=== PATIENT | male | born 1960 | race Caucasian/White ===

== ENCOUNTER 2016-06-07 05:28 | Emergency (ER) | payer BC, OTHER ==
[2016-06-07 05:42] VITALS: BMI 30.3
[2016-06-07] MEDS ORDERED: FAMOTIDINE 20 MG/50 ML IVPB 50 ML IVPB ONE ×2 (06:05→06:16)
[2016-06-07] MEDS ORDERED: PANTOPRAZOLE SODIUM 40 MG in SODIUM CHLORIDE 100 ML IVPB ONE (06:05)
[2016-06-07] MEDS ORDERED: SODIUM CHLORIDE 1,000 ML IV STA (06:05)
[2016-06-07] MEDS ORDERED: PANTOPRAZOLE SODIUM 40 MG VIAL ONE (06:16)
--- NOTE | 2016-06-07 06:25 | PDOC ---
[id number] 4d STOMACH PAIN Time Seen by Provider: 06/07/16 05:51 History Source: Patient Exam Limitations: No Limitations - History of Present Illness Travel History: No Initial Comments: 06/07/16 06:20 55yo Male patient presents to ED c/o abd pain and diarrhea that began Monday. Patient reports pain has been constant to the point he is very uncomfortable and has no appetite at this time. Patient denies fever, nausea, vomiting, constipation, rectal bleeding, dysuria, hematuria, rash, back pain, CP, diff breathing, trauma, injury or any other complaints at this time. Denies PmHx/Sx, medications use or allergies. Timing/Duration: reports: constant, getting worse Quality: reports: moderate Abdominal Pain Onset Location: reports: epigastric Pain Radiation: reports: no radiation Activities at Onset: reports: no specific activity Treatment Prior to Arrive: worse with: analgesics, antacids, cold pack, heat, laxative, enema, other Aggravating Factors: worse with: None, Defecation, Eating, Emotional upset, Exertion, [place], Movement, Voiding, Change in position Alleviating Factors: worse with: None, Belching, Shallow Breathing, Defecation, Eating, Holding Breath, Passing Gas, Change in Position, Rest, Voiding, Vomiting Past History - Travel Traveled outside of the country in the last 30 days: No Close contact w/someone who was outside of country & ill: No - Past Medical History Allergies/Adverse Reactions: Allergies Allergy/AdvReac Type Severity Reaction Status Date / Time No Known Allergies Allergy Verified 06/07/16 05:40 Home Medications: Ambulatory Orders NK [No Known Home Medication] 06/07/16 Anemia: No Asthma: No Cancer: No Cardiac Disorders: No CVA: No COPD: No CHF: No Dementia: No Diabetes: No GI Disorders: Yes (DIVERTICULOSIS; POLYP) Disorders: No HTN: No Hypercholesterolemia: No Liver Disease: No Seizures: No Thyroid Disease: No - Surgical History Abdominal Surgery: No Appendectomy: No Cardiac Surgery: No Cholecystectomy: No Lung Surgery: No Neurologic Surgery: No Orthopedic Surgery: No - Immunization History Td Vaccination: Yes TDAP Vaccination: Yes Immunization Up to Date: Yes - Psycho/Social/Smoking Cessation Hx Anxiety: No Suicidal Ideation: No Smoking Status: No Smoking History: Never smoked Years of Tobacco Use: 0 Have you smoked in the past 12 months: No Number of Cigarettes Smoked Daily: 0 Cigars Per Day: 0 Information on smoking cessation initiated: No Hx Alcohol Use: No Drug/Substance Use Hx: No Substance Use Type: None Hx Substance Use Treatment: No Abd/GI Specific PMHX - Complaint Specific PMHX Colitis: No Diverticulitis: No Gall Bladder Disease: No GERD: No Hepatitis: No Irritable Bowel Synd (IBS): No Pancreatitis: No GI Ulcer Disease: No Review of Systems - Review of Systems Able to Perform ROS?: Yes Is the patient limited [place] proficient: No Constitutional: No: Chills, Fever, Night Sweats Respiratory: No: Cough, Orthopnea, Shortness of Breath, Stridor, Wheezing, Hemoptysis Cardiac (ROS): No: Chest Pain, Edema, Irregular Heart Rate, Lightheadedness, Palpitations, Syncope, Chest Tightness ABD/GI: Yes: Diarrhea, Poor Appetite, Other (Abdominal Pain). No: Constipated, Nausea, Poor Fluid Intake, Rectal Bleeding, Vomiting : No: Burning, Dysuria, Frequency, Flank Pain, Hematuria, Pain Musculoskeletal: No: Back Pain Integumentary: No: Erythema, Rash Neurological: No: Headache, Numbness, Seizure, Tremors, Weakness All Other Systems: Reviewed and Negative *Physical Exam - Vital Signs Last Vital Signs Temp Pulse Resp BP Pulse Ox 98.1 F 84 14 133/79 97 06/07/16 05:40 06/07/16 05:40 06/07/16 05:40 06/07/16 05:40 06/07/16 05:40 - Physical Exam General Appearance: Yes: Nourished, Appropriately Dressed, Mild Distress. No: Apparent Distress, Moderate Distress, Severe Distress Neck: positive: Trachea midline, Supple. negative: Stridor, Lymphadenopathy (R) , Lymphadenopathy (L) Respiratory/Chest: positive: Lungs Clear, Normal Breath Sounds. negative: Chest Tender, Respiratory Distress, Accessory Muscle Use, Labored Respiration, Rapid RR Cardiovascular: positive: Regular Rhythm, Regular Rate. negative: Edema, JVD, Murmur Gastrointestinal/Abdominal: positive: Tender (Mild epigastric tenderness on deep palpation.), Soft, Increased Bowel Sounds, Tenderness. negative: Organomegaly, Distended, Guarding, Rebound Musculoskeletal: positive: Normal Inspection. negative: CVA Tenderness Extremity: positive: Normal Capillary Refill, Normal Inspection, Normal Range of Motion. negative: Pedal Edema, Swelling Integumentary: positive: Normal Color, Dry, Warm Neurologic: positive: physiotherapy assistant II-XII NML intact, Fully Oriented, Alert, Normal Mood/ Affect, Normal Response, Motor Strength 09/02 ED Treatment Course - LABORATORY CBC & Chemistry Diagram: 06/07/16 06:29 06/07/16 07:32 *DC/Admit/Observation/Transfer Diagnosis at time of Disposition: Gastroenteritis Diarrhea Qualifiers: Diarrhea type: unspecified type Qualified Code(s): R19.7 - Diarrhea, unspecified - Discharge Dispostion Disposition: HOME Condition at time of disposition: Improved Admit: No - Patient Instructions Printed Discharge Instructions: DI for Viral Gastroenteritis -- Adult Additional Instructions: Recommend sticking with clear liquids until this afternoon and advancing to bland food for the next 2 days allowing your stomach to rest. He may take [id number] Pepcid for discomfort but I do not recommend taking anything if you have episodes of diarrhea except for drinking electrolyte based fluids
[2016-06-07 07:18] LABS: BASOPHIL 0.3 % (0-2.0); MCH 28.8 pg (25.7-33.7); MCHC 33.4 g/dl (32.0-35.9); MEAN CELL VOLUME 86.1 fl (80-96); MEAN PLT VOLUME 6.5 fl (7.5-11.1); NEUTROPHILS 43.8 % (42.8-82.8); PLATELET COUNT 272 K/MM3 (134-434); RDW 14.5 % (11.9-15.9); WHITE BLOOD COUNT 2.6 K/mm3 (4.0-10.0)
[2016-06-07 07:23] VITALS: BP 117/80; PULSE 65; TEMP 98
--- NOTE | 2016-06-07 07:23 | PDOC ---
*Physical Exam - Vital Signs Last Vital Signs Temp Pulse Resp BP Pulse Ox 98.1 F 84 14 133/79 97 06/07/16 05:40 06/07/16 05:40 06/07/16 05:40 06/07/16 05:40 06/07/16 05:40 ED Treatment Course - LABORATORY CBC & Chemistry Diagram: 06/07/16 06:29 06/07/16 07:32 - ADDITIONAL ORDERS Additional order review: Laboratory Results 06/07/16 06/07/16 06:29 06:29 Sodium Cancelled Potassium Cancelled Chloride Cancelled Carbon Dioxide Cancelled Anion Gap Cancelled BUN Cancelled Creatinine Cancelled Creat Clearance w eGFR Cancelled Random Glucose Cancelled Calcium Cancelled Total Bilirubin Cancelled AST Cancelled ALT Cancelled Alkaline Phosphatase Cancelled Creatine Kinase Cancelled Troponin I Cancelled Total Protein Cancelled Albumin Cancelled Total Amylase Cancelled Lipase Cancelled - Medications Given in the ED: ED Medications Discontinued Medications Generic Name Dose Route Start Last Admin Trade Name Freq PRN Reason Stop Dose Admin Pantoprazole Sodium 40 mg/ 100 mls @ 200 mls/hr 06/07/16 06:05 06/07/16 06:40 Sodium Chloride IVPB 06/07/16 06:34 200 mls/hr ONCE ONE Administration Famotidine/Sodium Chloride 50 mls @ 100 mls/hr 06/07/16 06:05 06/07/16 06:40 Pepcid 20 Mg Premixed Ivpb - IVPB 06/07/16 06:34 100 mls/hr ONCE ONE Administration Sodium Chloride 1,000 mls @ 1,000 mls/hr 06/07/16 06:05 06/07/16 06:39 Normal Saline - IV 06/07/16 07:04 1,000 mls/hr [facility] Administration Medical Decision Making - Medical Decision Making 06/07/16 07:23 Patient received in sign out from WILBERT Rosenthal. Patient with epigastric pain associated with intermittent diarrhea. Patient awaiting labs. Patient receiving IV fluids and PPIs. 06/07/16 08:35 Patient states feeling better and requesting to leave. Patient will be discharged home with recommendations to take Pepcid [id number] and eat bland food for the next 2 days. Laboratory Tests 06/07/16 06/07/16 06/07/16 06:15 06:29 07:32 WBC 2.6 L D Hgb 14.6 Hct 43.8 Plt Count 272 Neutrophils % 43.8 Sodium 141 Potassium 4.4 Chloride 108 H Carbon Dioxide 26 Anion Gap 7 L BUN 12 Creatinine 0.7 Random Glucose 84 D Calcium 8.1 L Total Bilirubin 0.3 D AST 17 ALT 24 D Alkaline Phosphatase 86 Creatine Kinase 104 Troponin I < 0.02 Urine Blood 1+ H Urine Nitrite Negative Ur Leukocyte Esterase Negative *DC/Admit/Observation/Transfer Diagnosis at time of Disposition: Gastroenteritis Diarrhea Qualifiers: Diarrhea type: unspecified type Qualified Code(s): R19.7 - Diarrhea, unspecified - Discharge Dispostion Disposition: HOME Condition at time of disposition: Improved - Patient Instructions Printed Discharge Instructions: DI for Viral Gastroenteritis -- Adult Additional Instructions: Recommend sticking with clear liquids until this afternoon and advancing to bland food for the next 2 days allowing your stomach to rest. He may take [id number] Pepcid for discomfort but I do not recommend taking anything if you have episodes of diarrhea except for drinking electrolyte based fluids
[2016-06-07 07:30] LABS: URINE APPEARANCE CLEAR; URINE BILIRUBIN NEGATIVE (NEGATIVE); URINE COLOR LTYELLOW; URINE GLUCOSE (UA) NEGATIVE (NEGATIVE); URINE KETONE NEGATIVE (NEGATIVE); URINE LEUK ESTERASE NEGATIVE (NEGATIVE); URINE NITRITE NEGATIVE (NEGATIVE); URINE PROTEIN NEGATIVE (NEGATIVE); URINE UROBILINOGEN NEGATIVE E.U./dl (0.2-1.0)
[2016-06-07 07:48] LABS: URINE BLOOD 1+ (NEGATIVE)
[2016-06-07 07:52] LABS: URINE MUCUS RARE; URINE RBC 1 /hpf (0-3); URINE WBC <1 /hpf (3-5)
[2016-06-07 08:19] LABS: ALBUMIN 3.6 g/dl (3.4-5.0); ANION GAP 7 (8-16); BILIRUBIN,TOTAL 0.3 mg/dL (0.2-1.0); CALCIUM 8.1 mg/dL (8.5-10.1); CO2 26 mmol/L (21-32); CREATININE 0.7 mg/dL (0.7-1.3); GLUCOSE,RANDOM 84 mg/dL (74-106); SGOT/AST 17 U/L (15-37); SGPT/ALT 24 U/L (12-78); TOT PROT 6.8 g/dl (6.4-8.2)
[2016-06-07 08:21] LABS: ALK PHOS 86 U/L (45-117); TROPONIN I < 0.02 ng/ml (0.00-0.05)
--- NOTE | 2016-06-07 17:45 | EKG ---
Test Reason : Blood Pressure : / mmHG Vent. Rate : 066 BPM Atrial Rate : 066 BPM P-R Int : 166 ms QRS Dur : 084 ms QT Int : 386 ms P-R-T Axes : 070 074 050 degrees QTc Int : 404 ms NORMAL SINUS RHYTHM NORMAL ECG WHEN COMPARED WITH ECG OF 05-SEP-2013 17:22, NO SIGNIFICANT CHANGE WAS FOUND Confirmed by RASHAAD QUIÑONEZ MD ([id number]) on 06/07/2016 5:44:35 PM Referred By: Confirmed By:RASHAAD QUIÑONEZ MD
== END 2016-06-07 08:52 | disposition home or self-care (01) ==
LOC: JER 05:28
PROC: 3E033GC Introduction of Other Therapeutic Substance into Peripheral Vein, Percutaneous Approach (ICD-10-PCS; principal; 2016-06-07)
PROC: 3E033GC Introduction of Other Therapeutic Substance into Peripheral Vein, Percutaneous Approach (ICD-10-PCS; 2016-06-07)
DX: K52.9 Noninfective gastroenteritis and colitis, unspecified (principal)
CPT/HCPCS: 36415; 80053; 81003; 81015; 82550; 84484; 85025; 93005; 93010; 99283-25

== ENCOUNTER 2021-08-30 04:19 | Day surgery (SDC) | payer OTHER ==
[2021-08-25 16:27] VITALS: BMI 29.2
[2021-08-30] MEDS ORDERED: ONDANSETRON 4 MG/2 ML VIAL IVPUSH PRN (13:12)
[2021-08-30] MEDS ORDERED: ACETAMINOPHEN 325 MG TABLET (FP) PO PRN (13:12)
[2021-08-30] MEDS ORDERED: LACTATED RINGERS SOLUTION 1,000 ML IV SCH (13:15)
[2021-08-30] MEDS ORDERED: PROPOFOL 20 ML ONE (13:42)
[2021-08-30] MEDS ORDERED: oxyCODONE HCL 5 MG TABLET PO PRN (13:43)
[2021-08-30] MEDS ORDERED: DEXAMETHASONE SOD PHOSPHATE 4 MG/1 ML VIAL ONE (13:48)
[2021-08-30] MEDS ORDERED: KETOROLAC TROMETHAMINE 30 MG/1 ML VIAL ONE (13:48)
[2021-08-30 17:18] VITALS: BP 105/62; PULSE 76; TEMP 97.9
== END 2021-08-30 16:45 | disposition home or self-care (01) ==
LOC: JASU-SURG 04:19
PROVIDERS: ATTEND Urology
PROC: 0TF3XZZ Fragmentation in Right Kidney Pelvis, External Approach (ICD-10-PCS; principal; 2021-08-30 12:00)
DX: N20.0 Calculus of kidney (principal)